=== PATIENT | male | born 1985 | race African-American/Black ===

== ENCOUNTER 2020-06-27 00:07 | Emergency (ER) | payer SELFPAY ==
[~2020-06-27] VITALS: Ht 167.6 cm; Wt 82.0 kg
[2020-06-27 00:07] VITALS: BP 148/81
--- NOTE | 2020-06-27 00:33 | PHYS DOC ---
Past History Past Medical History: Asthma Past Surgical History: No Surgical History Alcohol Use: Occasionally Adult General Chief Complaint Chief Complaint: DRUG ABUSE [facility] Patient is a 35-year-old male with past medical history of polysubstance abuse who presents to the emergency room requesting rehab help. He has never went inpatient previously. He denies any suicidal or homicidal ideations. He last used a couple of days ago. His drug of choice is methamphetamines however he also uses cocaine and marijuana. Review of Systems Review of Systems Complete ROS is negative unless otherwise documented in HPI Allergies Allergies Allergies Coded Allergies Type Severity Reaction Last Updated Verified No Known Drug Allergies 06/27/20 No Physical Exam Physical Exam General: Awake, alert, NAD. Well Nourished, well hydrated. Cooperative HEENT: Atraumatic, EOMI, PERRL, airway patent, moist oral mucosa Neck: Supple, trachea midline Respiratory: CTA bilaterally, normal effort, no wheezing/crackles CV: RRR, no murmur, cap refill <2 GI: Soft, nondistended, nontender, no masses MSK: No obvious deformities Skin: Warm, dry, intact Neuro: A&O x3, speech NL, sensory and motor grossly intact, no focal deficits Psych: Flat affect, normal mood, not suicidal or homicidal Current Patient Data Vital Signs Vital Signs Date Time Temp Pulse Resp B/P (MAP) Pulse Ox O2 Delivery O2 Flow Rate FiO2 06/27/20 00:07 98.0 80 148/81 (103) 96 Ventilator EKG EKG [] Radiology/Procedures Radiology/Procedures [] Heart Score Risk Factors: Risk Factors: DM, Current or recent (<one month) smoker, HTN, HLP, family history of CAD, obesity. Risk Scores: Risk Factors: DM, Current or recent (<one month) smoker, HTN, HLP, family history of CAD, obesity. Course & Med Decision Making Course & Med Decision Making Pertinent Labs and Imaging studies reviewed. (See chart for details) Patient is a 35-year-old male who presents to the emergency room with help going into polysubstance abuse therapy. At this time we are unable to tell place him but we can medically clear him. Lab work was done to medically clear him for placement. He will follow up with the guidance Center in the morning for further resources and placement help. Patient's test results and vitals while in the ED were fully reviewed and discussed with the patient. Patient is stable and at this time does not need admission to the hospital. We have discussed strict return precautions and the importance of following up with their Primary Care Physician. Patient stated understanding and was given an opportunity to ask any questions. Patient is in agreement with plan. Dragon Disclaimer Dragon Disclaimer This electronic medical record was generated, in whole or in part, using a voice recognition dictation system. Departure Departure: Impression: Primary Impression: Methamphetamine abuse Disposition: 01 DC HOME SELF CARE/HOMELESS Condition: STABLE Referrals: PCP,NO (PCP) Patient Instructions: Methamphetamine Abuse, Complications Additional Instructions: Please follow up at the [facility] tomorrow morning [address] [place] [phone] PAM GUZMAN MD Jun 27, 2020 00:33
[2020-06-27 01:15] LABS: BASO % 0 % (0-3); EOS # 0.4 x10^3/uL (0.0-0.7); EOS % 5 % (0-3); HEMATOCRIT 41.5 % (39.0-53.0); HEMOGLOBIN 14.1 g/dL (13.0-17.5); LYMPH # 1.9 x10^3/uL (1.0-4.8); LYMPH % 26 % (24-48); MEAN CORPUSCULAR HEMOGLOBIN 32 pg (25-35); MEAN CORPUSCULAR HGB CONC 34 g/dL (31-37); MEAN CORPUSCULAR VOLUME 95 fL (79-100); MONO # 0.8 x10^3/uL (0.0-1.1); MONO % 11 % (0-9); NEUT # 4.2 x10^3uL (1.8-7.7); NEUT % 57 % (31-73); PLATELET COUNT 151 x10^3/uL (140-400); RED CELL DISTRIBUTION WIDTH 13.4 % (11.5-14.5); WHITE BLOOD COUNT 7.3 x10^3/uL (4.0-11.0)
[2020-06-27] MEDS ORDERED: ONDANSETRON PF 4 MG/2 ML VIAL. IVP ONE (01:15)
[2020-06-27 01:20] LABS: BACTERIA,URINE 0 /HPF (0-FEW); BILIRUBIN,URINE NEG (NEG); CLARITY,URINE CLEAR; COLOR,URINE YELLOW; GLUCOSE,URINE NEG (NEG); NITRITE,URINE NEG (NEG); SQUAMOUS EPITHELIAL CELL,UR OCC /LPF; UROBILINOGEN,URINE 0.2 mg/dL (0.2 mg/dL); WBC,URINE OCC /HPF (0-4)
[2020-06-27 01:22] LABS: CALCIUM 8.2 mg/dL (8.5-10.1); CREATININE 1.3 mg/dL (0.7-1.3); POTASSIUM 3.8 mmol/L (3.5-5.1)
[2020-06-27 01:24] LABS: BARBITURATES NEG (NEG); BENZODIAZEPINES NEG (NEG); CANNABINOIDS POS (NEG); COCAINE NEG (NEG); METHADONE NEG (NEG); OPIATES NEG (NEG); PHENCYCLIDINE NEG (NEG)
[2020-06-27 01:29] LABS: AMPHETAMINE/METHAMPHETAMINE NEG (NEG)
[2020-06-27 01:29] LABS: ALBUMIN 3.9 g/dL (3.4-5.0); ALBUMIN/GLOBULIN RATIO 1.1 (1.0-1.7); TOTAL BILIRUBIN 0.3 mg/dL (0.2-1.0); TOTAL PROTEIN 7.3 g/dL (6.4-8.2)
== END 2020-06-27 00:55 | disposition home or self-care (01) ==
LOC: ER 00:07
DX: F15.10 Other stimulant abuse, uncomplicated (principal); J45.909 Unspecified asthma, uncomplicated; Z20.828 Contact with and (suspected) exposure to other viral communicable diseases
CPT/HCPCS: 36415; 80053; 80307; 81001; 85025; 99283; C9803; U0003

== ENCOUNTER 2020-06-27 03:48 | Emergency (ER) | payer SELFPAY ==
[~2020-06-27] VITALS: Ht 167.6 cm; Wt 82.0 kg
[2020-06-27 03:48] VITALS: BP 126/69
[2020-06-27 04:28] LABS: BARBITURATES NEG (NEG); BENZODIAZEPINES NEG (NEG); CANNABINOIDS POS (NEG); COCAINE NEG (NEG); METHADONE NEG (NEG); OPIATES NEG (NEG); PHENCYCLIDINE NEG (NEG)
[2020-06-27 04:29] LABS: AMPHETAMINE/METHAMPHETAMINE NEG (NEG)
[2020-06-27 04:32] LABS: BACTERIA,URINE 0 /HPF (0-FEW); BILIRUBIN,URINE NEG (NEG); CLARITY,URINE CLEAR; COLOR,URINE YELLOW; GLUCOSE,URINE NEG (NEG); NITRITE,URINE NEG (NEG); SQUAMOUS EPITHELIAL CELL,UR OCC /LPF; WBC,URINE OCC /HPF (0-4)
--- NOTE | 2020-06-27 05:25 | PHYS DOC ---
Past History Past Medical History: Asthma (PAM GUZMAN MD) Past Surgical History: No Surgical History (PAM GUZMAN MD) Alcohol Use: Occasionally (PAM GUZMAN MD) Adult General Chief Complaint Chief Complaint: SUICIDAL IDEATION [facility] Patient is a 35-year-old male who presents to the emergency room complaining of suicidal ideation. Patient was evaluated here in the emergency room earlier this evening requesting help with rehab. He states he went home was locked out of his house so he started to feel like maybe his back be better if he just ended at all. He denies a plan. No history of trying to hurt himself. (PAM GUZMAN MD) Review of Systems Review of Systems Complete ROS is negative unless otherwise documented in [facility] (PAM GUZMAN MD) Allergies Allergies Allergies Coded Allergies Type Severity Reaction Last Updated Verified No Known Drug Allergies 06/27/20 No (PAM GUZMAN MD) Physical Exam Physical Exam General: Awake, alert, NAD. Well Nourished, well hydrated. Cooperative HEENT: Atraumatic, EOMI, PERRL, airway patent, moist oral mucosa Neck: Supple, trachea midline Respiratory: CTA bilaterally, normal effort, no wheezing/crackles CV: RRR, no murmur, cap refill <2 GI: Soft, nondistended, nontender, no masses MSK: No obvious deformities Skin: Warm, dry, intact Neuro: A&O x3, speech NL, sensory and motor grossly intact, no focal deficits Psych: Flat affect, suicidal (PAM GUZMAN MD) Current Patient Data Vital Signs Vital Signs Date Time Temp Pulse Resp B/P (MAP) Pulse Ox O2 Delivery O2 Flow Rate FiO2 06/27/20 03:48 97.7 56 18 126/69 (88) 98 Room Air Lab Results Laboratory Tests Test 06/27/20 04:00 Urine Collection Type Unknown Urine Color Yellow Urine Clarity Clear Urine pH 6.0 Urine Specific Michael 1.025 Urine Protein Neg (NEG-TRACE) Urine Glucose (UA) Neg mg/dL (NEG) Urine Ketones (Stick) Neg mg/dL (NEG) Urine Blood Large (NEG) Urine Nitrite Neg (NEG) Urine Bilirubin Neg (NEG) Urine Urobilinogen Dipstick 1.0 mg/dL (0.2 mg/dL) Urine Leukocyte Esterase Neg (NEG) Urine RBC 11-20 /HPF (0-2) Urine WBC Occ /HPF (0-4) Urine Squamous Epithelial Cells Occ /LPF Urine Bacteria 0 /HPF (0-FEW) Urine Opiates Screen Neg (NEG) Urine Methadone Screen Neg (NEG) Urine Barbiturates Neg (NEG) Urine Phencyclidine Screen Neg (NEG) Urine Amphetamine/Methamphetamine Neg (NEG) Urine Benzodiazepines Screen Neg (NEG) Urine Cocaine Screen Neg (NEG) Urine Cannabinoids Screen Pos (NEG) Urine Ethyl Alcohol Neg (NEG) (PAM GUZMAN MD) EKG EKG [] (PAM GUZMAN MD) Radiology/Procedures Radiology/Procedures [] (PAM GUZMAN MD) Heart Score Risk Factors: Risk Factors: DM, Current or recent (<one month) smoker, HTN, HLP, family history of CAD, obesity. Risk Scores: Risk Factors: DM, Current or recent (<one month) smoker, HTN, HLP, family history of CAD, obesity. (PAM GUZMAN MD) Course & Med Decision Making Course & Med Decision Making Pertinent Labs and Imaging studies reviewed. (See chart for details) Patient is a 35-year-old with a history of polysubstance abuse who presents to the Emergency Room with suicidal ideations. Upon arrival the the Emergency Room, patient was changed into a gown and personal belongings were taken to security for safety. Patient was placed on a one-on-one. Lab work was ordered if requested by psychiatric team. Psychiatric team was consulted. Patient discussed with oncoming physician who will assume care. (PAM GUZMAN MD) Course & Med Decision Making Received comprehensive signout from off going physician. Patient seen and examined by myself, still pending psychiatric consultation at time of my shift starting. Nonetheless, psychiatric team evaluated patient and felt he was safe for discharge home with safety plan. I am comfortable with this decision. I discussed plan of care going forward regarding patient's polysubstance abuse and he has adequate plan in place regarding seeking help/rehabilitation. All questions and concerns addressed prior to discharge home in stable condition (BILL GARCIA DO) Dragon Disclaimer Dragon Disclaimer This electronic medical record was generated, in whole or in part, using a voice recognition dictation system. (PAM GUZMAN MD) Departure Departure: Impression: Primary Impression: Suicidal thoughts Additional Impression: Polysubstance abuse Disposition: 01 DC HOME SELF CARE/HOMELESS Condition: STABLE Referrals: PCP,NO (PCP) Patient Instructions: Alcohol and Drug Addiction, Finding Treatment, Substance Abuse-Brief, Suicidal Feelings, How to Help Yourself Additional Instructions: As discussed prior to ER departure, please use attached sheet of local primary care physicians to call and establish care as soon as you can. This would benefit you in numerous ways for continuity of care and provide you access to health care in outpatient setting Please continue to strive for complete cessation of illicit drugs. Attached is information regarding how to seek treatment/help. You appear to be on the right path for sobriety, if any concerning signs or symptoms present prior to outpatient PCP follow-up for rehabilitation please do not hesitate to come back for repeat evaluation It was pleasure to take care of you today and I wish you the very best! Problem Qualifiers PAM GUZMAN MD Jun 27, 2020 05:25 BILL GARCIA DO Jun 27, 2020 08:19
== END 2020-06-27 08:52 | disposition home or self-care (01) ==
LOC: ER 03:48
DX: R45.851 Suicidal ideations (principal); F19.10 Other psychoactive substance abuse, uncomplicated; J45.909 Unspecified asthma, uncomplicated
CPT/HCPCS: 36415; 80307; 81001; 99285; G0480

== ENCOUNTER → 2020-07-10 | Emergency (ER) | payer SELFPAY ==
[2020-06-27 03:48] VITALS: BP 126/69
== END | disposition left against medical advice (07) ==
LOC: ER 14:10
DX: F10.129 Alcohol abuse with intoxication, unspecified (principal); Z53.21 Procedure and treatment not carried out due to patient leaving prior to being seen by health care provider

== ENCOUNTER 2021-09-16 13:41 | Emergency (ER) | payer MEDICAID ==
[~2021-09-16] VITALS: Ht 167.6 cm; Wt 86.3 kg
[2021-09-16 14:10] VITALS: BP 144/97
--- NOTE | 2021-09-16 14:18 | PHYS DOC ---
Past History Past Medical History: Asthma (CHRIS DINERO APRN) Past Surgical History: No Surgical History (CHRIS DINERO APRN) Alcohol Use: Occasionally (CHRIS DINERO APRN) General Adult EDM: Chief Complaint: PSYCH EVALUATION HPI: HPI: Patient is a 36-year-old male who presents to the emergency department for psychiatric evaluation. Patient reports that he has been sober from methamphetamine use for 2 months but relapsed yesterday. Patient is emotionally upset. He is reports that he has got some previous trauma from his childhood that he needs help working through. He states that he feels like he is not successful as all of his friends graduated from college and are and have children. Patient states that he is homeless. Patient states he did go to detox and rehab in [place] but now he is home. Patient states that he experiences paranoia sometimes. He denies any current suicidal ideation but reports in the past he has had suicidal thoughts without a plan. Patient is seeking detox for his methamphetamine use. He has no current complaints. (CHRIS DINERO APRN) Review of Systems: Review of Systems: Constitutional: negative unless reported in HPI Eyes: negative unless reported in HPI HENT: negative unless reported in HPI Respiratory: negative unless reported in HPI Cardiovascular: negative unless reported in HPI GI: negative unless reported in HPI : negative unless reported in HPI Musculoskeletal: negative unless reported in HPI Integument: negative unless reported in HPI Neurologic: negative unless reported in HPI Endocrine: negative unless reported in HPI Lymphatic: negative unless reported in HPI Psychiatric: negative unless reported in HPI (CHRIS DINERO APRN) Allergies: Allergies: Allergies Coded Allergies Type Severity Reaction Last Updated Verified No Known Drug Allergies 06/27/20 No (CHRIS DINERO APRN) Physical Exam: PE: Constitutional: Well developed, well nourished, no acute distress, non-toxic appearance. [] HENT: Normocephalic, atraumatic, bilateral external ears normal, oropharynx moist, no oral exudates, nose normal. [] Eyes: PERRL, EOMI, conjunctiva normal, no discharge. [] Neck: Normal range of motion, no stridor Cardiovascular:Heart rate regular rhythm, no murmur [] Lungs & Thorax: Bilateral breath sounds clear to auscultation [] Abdomen: Bowel sounds normal, soft, no tenderness, no masses, no pulsatile masses. [] Skin: Warm, dry, no erythema, no rash. [] Back: Normal range of motion Extremities: No tenderness, no cyanosis, no clubbing, ROM intact, no edema. [] Neurologic: Alert and oriented X 3, normal motor function, normal sensory function, no focal deficits noted. [] Psychologic: Judgment normal, tearful and emotionally upset (CHRIS DINERO APRN) Current Patient Data: Labs: Laboratory Tests Test 09/16/21 14:07 09/16/21 14:17 White Blood Count 9.2 x10^3/uL Red Blood Count 4.91 x10^6/uL Hemoglobin 15.8 g/dL Hematocrit 46.2 % Mean Corpuscular Volume 94 fL Mean Corpuscular Hemoglobin 32 pg Mean Corpuscular Hemoglobin Concent 34 g/dL Red Cell Distribution Width 13.0 % Platelet Count 180 x10^3/uL Neutrophils (%) (Auto) 71 % Lymphocytes (%) (Auto) 16 % Monocytes (%) (Auto) 11 % Eosinophils (%) (Auto) 2 % Basophils (%) (Auto) 0 % Neutrophils # (Auto) 6.6 x10^3uL Lymphocytes # (Auto) 1.5 x10^3/uL Monocytes # (Auto) 1.0 x10^3/uL Eosinophils # (Auto) 0.2 x10^3/uL Basophils # (Auto) 0.0 x10^3/uL Sodium Level 137 mmol/L Potassium Level 3.5 mmol/L Chloride Level 99 mmol/L Carbon Dioxide Level 24 mmol/L Anion Gap 14 Blood Urea Nitrogen 21 mg/dL Creatinine 1.2 mg/dL Estimated GFR (Cockcroft-Gault) 82.9 BUN/Creatinine Ratio 18 Glucose Level 74 mg/dL Calcium Level 9.3 mg/dL Total Bilirubin 1.6 mg/dL Aspartate Amino Transf (AST/SGOT) 105 U/L Alanine Aminotransferase (ALT/SGPT) 96 U/L Alkaline Phosphatase 72 U/L Total Protein 8.1 g/dL Albumin 4.4 g/dL Albumin/Globulin Ratio 1.2 Ethyl Alcohol Level < 10 mg/dL Influenza Type A (Rapid) Negative Influenza Type B (Rapid) Negative SARS-CoV-2 Antigen (Rapid) Negative Vital Signs: Vital Signs Date Time Temp Pulse Resp B/P (MAP) Pulse Ox O2 Delivery O2 Flow Rate FiO2 09/16/21 14:10 98.2 104 20 144/97 (113) 97 Room Air (CHRIS DINERO APRN) EKG: EKG: [] (CHRIS DINERO APRN) Radiology/Procedures: Radiology/Procedures: [] (CHRIS DINERO APRN) Heart Score: C/O Chest Pain: N/A Risk Factors: Risk Factors: DM, Current or recent (<one month) smoker, HTN, HLP, family histo ry of CAD, obesity. Risk Scores: Score 0 - 3: 2.5% MACE over next 6 weeks - Discharge Home Score 4 - 6: 20.3% MACE over next 6 weeks - Admit for Clinical Observation Score 7 - 10: 72.7% MACE over next 6 weeks - Early Invasive Strategies (CHRIS DINERO APRN) Course & Med Decision Making: Course & Med Decision Making Pertinent Labs and Imaging studies reviewed. (See chart for details) [] Patient presents to the emergency department seeking detox from methamphetamines. He last used yesterday. Prior to that he was sober for 2 months. Patient is homeless. He has a history of detox and rehab in [place]. He denies any current suicidal thoughts but reports that he has had a history of some suicidal thoughts without a plan. Patient's work-up in the ER consisted of blood work and urinalysis for medical clearance. Patient will be evaluated by member of the psychiatric assessment team. Patient's lab work is unremarkable and he is medically cleared at this time. Urinalysis is pending at this time. Patient was evaluated by a member of the psychiatric assessment team and placement was found for him at [facility]. Patient be transferred via EMS to [facility]. (CHRIS DINERO APRN) Dragon Disclaimer: Dragon Disclaimer: This electronic medical record was generated, in whole or in part, using a voice recognition dictation system. (CHRIS DINERO APRN) Departure Departure: Impression: Primary Impression: Encounter for psychiatric assessment Additional Impression: Methamphetamine abuse Disposition: [facility]PAT[facility]ACILITY Condition: GOOD Referrals: PCP,NO (PCP) Patient Instructions: Drug Abuse and Addiction-SportsMed, Suicidal Feelings, How to Help Yourself Additional Instructions: You were seen in the emergency department today for a psychiatric assessment. Your blood work was reassuring. You are to be transferred to [facility] for detox from methamphetamine use. Please return to the emergency department if you have any suicidal or homicidal ideation or any other concerns. Attending Signature Attending Signature I have reviewed the PA/MANAGER TRAVEL's note and plan of care. I was available for consultation as needed during the patient's visit in the emergency department. I agree with the clinical impression, plan, and disposition. (SHILPA OATES DO) CHRIS DINERO APRN Sep 16, 2021 14:18 SHILPA OATES DO Sep 16, 2021 22:04
[2021-09-16 14:40] LABS: BASO % 0 % (0-3); EOS # 0.2 x10^3/uL (0.0-0.7); EOS % 2 % (0-3); HEMATOCRIT 46.2 % (39.0-53.0); HEMOGLOBIN 15.8 g/dL (13.0-17.5); LYMPH # 1.5 x10^3/uL (1.0-4.8); LYMPH % 16 % (24-48); MEAN CORPUSCULAR HEMOGLOBIN 32 pg (25-35); MEAN CORPUSCULAR HGB CONC 34 g/dL (31-37); MEAN CORPUSCULAR VOLUME 94 fL (79-100); MONO % 11 % (0-9); NEUT # 6.6 x10^3uL (1.8-7.7); NEUT % 71 % (31-73); PLATELET COUNT 180 x10^3/uL (140-400); RED BLOOD COUNT 4.91 x10^6/uL (4.30-5.70); WHITE BLOOD COUNT 9.2 x10^3/uL (4.0-11.0)
[2021-09-16 14:52] LABS: CALCIUM 9.3 mg/dL (8.5-10.1); CREATININE 1.2 mg/dL (0.7-1.3); GFR 82.9; POTASSIUM 3.5 mmol/L (3.5-5.1)
[2021-09-16 14:58] LABS: ALBUMIN 4.4 g/dL (3.4-5.0); ALBUMIN/GLOBULIN RATIO 1.2 (1.0-1.7); TOTAL BILIRUBIN 1.6 mg/dL (0.2-1.0); TOTAL PROTEIN 8.1 g/dL (6.4-8.2)
[2021-09-16 14:59] LABS: INFLUENZA A PATIENT NEGATIVE (NEGATIVE); INFLUENZA B PATIENT NEGATIVE (NEGATIVE)
== END 2021-09-16 17:49 ==
LOC: ER 13:41
DX: Z00.8 Encounter for other general examination (principal); F15.10 Other stimulant abuse, uncomplicated; J45.909 Unspecified asthma, uncomplicated; Z20.822 Contact with and (suspected) exposure to COVID-19
CPT/HCPCS: 36415; 80053; 85025; 87428; 99285; C9803; G0480; U0003